=== PATIENT | female | born 1965 | race American Indian/Alaskan Native ===

== ENCOUNTER 2022-06-28 15:43 | Emergency (ER) | payer OTHER ==
--- NOTE | 2022-06-28 16:35 | Emergency Department Report ---
HPI - General Chief Complaint: Anxiety Time Seen by Provider: 06/28/22 16:20 - HPI HPI: Room 25 The patient is a 57-year-old female present with chief complaint anxiety attack. Patient has a history of anxiety reports feeling anxious today so she went to [place]. Apparently at [place] she became extremely anxious complaining of sinus congestion prompting them to call EMS and send the patient to the ED for medical clearance. EMS arrived and was able to calm the patient down without medication and she was transported to the ED. In the ED the patient is resting comfortably on the stretcher and is in no acute distress. Patient is calm now only complains of dental pain which has been present for over 4 to 5 months ED Past Medical Hx - Past Medical History Hx Hypertension: Yes Hx Psychiatric Treatment: Yes (Anxiety) - Surgical History Past Surgical History?: No - Family History Family history: no significant - Social History Smoking Status: Current Some Day Smoker Substance Use Type: None (Denies illicit drug use), Alcohol (Occasional) ED Review of Systems ROS: Stated complaint: PANIC ATTACK Other details as noted in HPI Constitutional: no symptoms reported Eyes: denies: eye pain ENT: congestion Respiratory: no symptoms reported Cardiovascular: denies: chest pain Endocrine: no symptoms reported Gastrointestinal: denies: abdominal pain Genitourinary: denies: dysuria Musculoskeletal: denies: back pain Neurological: denies: headache Physical Exam - Physical Exam Vital Signs: Vital Signs 06/28/22 15:43 Temperature 98.4 F Pulse Rate 128 H Respiratory 18 Rate Blood Pressure 180/100 [Right] O2 Sat by Pulse 96 Oximetry Physical Exam: GENERAL: The patient is well-developed well-nourished female lying on stretcher resting comfortably not appearing to be in acute distress. [] HEENT: Normocephalic. Atraumatic. Extraocular motions are intact. Patient has moist mucous membranes. No gingival erythema appreciated NECK: Supple. Trachea midline CHEST/LUNGS: Clear to auscultation. There is no respiratory distress noted. HEART/CARDIOVASCULAR: Regular. There is no tachycardia. There is no gallop rub or murmur. ABDOMEN: Abdomen is soft, nontender. Patient has normal bowel sounds. There is no abdominal distention. SKIN: There is no rash. There is no edema. There is no diaphoresis. NEURO: The patient is awake, alert, and oriented. The patient is cooperative. The patient has no focal neurologic deficits. The patient has normal speech. GCS 15 MUSCULOSKELETAL: There is no evidence of acute injury. ED Course Vital Signs 06/28/22 15:43 Temperature 98.4 F Pulse Rate 128 H Respiratory 18 Rate Blood Pressure 180/100 [Right] O2 Sat by Pulse 96 Oximetry ED Medical Decision Making - Differential Diagnosis Anxiety attack Critical care attestation.: If time is entered above; I have spent that time in minutes in the direct care of this critically ill patient, excluding procedure time. ED Disposition Clinical Impression: Anxiety Disposition: [address] [place] [address] Is pt being admited?: No Does the pt Need Aspirin: No Condition: Stable Referrals: PRIMARY CARE, [Primary Care Provider] - 3-5 Days
[2022-06-28 18:45] LABS: Amphetamine Screen,Urine Negative; Benzodiazepines Screen,Urine Negative; Cannabinoid Screen,Urine Negative; Cocaine Screen,Urine Negative; Methadone Screen,Urine Negative; Opiate Screen,Urine Negative
[2022-06-28 18:57] LABS: Bilirubin,Urine Negative (Negative); Color,Urine Straw (Yellow)
[2022-06-28 18:58] LABS: Blood,Urine Negative (Negative); Protein,Urine <15 mg/dL mg/dL (Negative)
[2022-06-28 19:26] LABS: Bacteria,Urine 1+ /HPF (Negative); Mucus,Urine FEW /HPF; WBC,Urine < 1.0 /HPF (0.0-6.0)
[2022-06-28] MEDS ORDERED: HALOPERIDOL LACTATE 5 MG/1 ML INJ IM PRN (19:42)
[2022-06-28] MEDS ORDERED: LORazepam 2 MG/ML VIAL IM PRN (19:42)
[2022-06-28] MEDS ORDERED: diphenhydrAMINE 50 MG/ML VIAL IM PRN (19:42)
[2022-06-29] MEDS ORDERED: ZIPRASIDONE MESYLATE 20 MG VIAL IM ONE (06:11)
--- NOTE | 2022-06-29 11:07 | Emergency Department Report ---
Blank Doc - Documentation Documentation: No new events overnight awaiting disposition
[2022-06-29 11:11] LABS: Amphetamine Screen,Urine Negative; Benzodiazepines Screen,Urine Negative; Cocaine Screen,Urine Negative; Methadone Screen,Urine Negative; Opiate Screen,Urine Negative
[2022-06-29 11:13] LABS: Bacteria,Urine 1+ /HPF (Negative); Mucus,Urine FEW /HPF
[2022-06-29 11:23] LABS: Cannabinoid Screen,Urine Positive
[2022-06-29 11:57] LABS: Bilirubin,Urine Negative (Negative); Color,Urine Yellow (Yellow)
[2022-06-29 11:58] LABS: Blood,Urine 1+ (Negative); Protein,Urine <15 mg/dL mg/dL (Negative)
--- NOTE | 2022-06-29 14:20 | Consultation ---
History of Present Illness - Reason for Consult Consult date: 06/29/22 Reason for consult: Mental health evaluation - History of Present Psychiatric Illness Per note: The patient is a 57-year-old female present with chief complaint anxiety attack. Patient has a history of anxiety reports feeling anxious today so she went to [place]. Apparently at [place] she became extremely anxious complaining of sinus congestion prompting them to call EMS and send the patient to the ED for medical clearance. EMS arrived and was able to calm the patient down without medication and she was transported to the ED. In the ED the patient is resting comfortably on the stretcher and is in no acute distress. Patient is calm now only complains of dental pain which has been present for over 4 to 5 months. The patient was seen today. She reports ongoing anxiety " I feel like a roller coaster ride." The patient presents with bizarre behavior, and disrobing in front of the provider. The patient states her mind is all over the place; unable to state if she was hallucinating. PAST PSYCHIATRIC HISTORY: Diagnoses: anxiety Suicide attempts or Self-harm behavior: Denies Prior psychiatric hospitalizations: Yes Substance Abuse history:Marijuana Previous psychiatric medications tried: None Outpatient treatment: Denies PAST MEDICAL HISTORY: None reported Family Psychiatric History: unknown SOCIAL HISTORY Marital Status: Single Living Arrangements: homeless Employment Status: Unemployed Access to guns/weapons: Denies Education: some college History of Abuse: Denies Legal History: unknown REVIEW OF SYSTEMS Constitutional: Negative for weight loss ENT: Negative for stridor Respiratory: Negative for cough or hemoptysis All other systems reviewed and are negative MENTAL STATUS General Appearance and Behavior: age appropriate, good eye contact, cooperative Cooperation: Cooperative Psychomotor Behavior: within normal limits Mood: anxious Affect and affective range: Congruent with stated mood Thought Process: Circumstantial Thought Content: reality oriented Speech: Normal Suicidal Ideation: Denies Homicidal Ideation: Denies Hallucinations: Denies Impulse Control: intact Insight and Judgment: Limited Memory: Limited Attention: Distracted Orientation: alert and oriented Assessment Unspecified mood Disorder Treatment Plan 1013 Zyprexa 5mg po daily Trazodone 50mg po QHS Vistaril 25mg po BID. Medical: Per primary SItter: Defer to primary Disposition: Recommend acute psychiatric inpatient treatment. Will follow. Thanks Case staffed with Dr. Yoo Medications and Allergies Allergies Allergy/AdvReac Type Severity Reaction Status Date / Time Sulfa (Sulfonamide Allergy Hives Verified 05/06/20 15:16 Antibiotics) Active Meds: Active Medications Diphenhydramine HCl (Diphenhydramine 50 Mg/Ml Vial) 50 mg IM Q6H PRN PRN Reason: Agitation Haloperidol Lactate (Haloperidol Lactate 5 Mg/1 Ml Inj) 10 mg IM Q8H PRN PRN Reason: Agitation Lorazepam (Lorazepam 2 Mg/Ml Vial) 2 mg IM Q8H PRN PRN Reason: Agitation Mental Status Exam - Vital signs Last Vital Signs Temp 98.8 F 06/29/22 03:50 Pulse 92 H 06/29/22 03:50 Resp 18 06/29/22 03:50 BP 146/94 06/29/22 03:50 Pulse Ox 100 06/29/22 11:21 Results Abnormal lab results 06/29/22 Range/Units 10:00 Urine WBC (Auto) 7.0 H (0.0-6.0) /HPF U Epithel Cells (Auto) 38.0 H (0-13.0) /HPF All other labs normal.
[2022-06-29] MEDS: hydrOXYzine PAMOATE 25 MG CAP PO SCH ×2 (18:47→22:00)
[2022-06-29 19:55] VITALS: BP 140/89
[2022-06-29] MEDS ORDERED: traZODone 50 MG TAB PO SCH (22:00)
== END 2022-06-29 22:25 ==
LOC: ED 15:43
DX: F41.9 Anxiety disorder, unspecified (principal); F17.200 Nicotine dependence, unspecified, uncomplicated; I10 Essential (primary) hypertension; F10.20 Alcohol dependence, uncomplicated; Z20.822 Contact with and (suspected) exposure to COVID-19
CPT/HCPCS: 80307; 81001; 96372; 99285; J3486; U0003